=== PATIENT | male | born 1980 | race Caucasian/White ===

== ENCOUNTER 2023-01-12 23:27 | Emergency (ER) | payer BC ==
[2023-01-12] MEDS ORDERED: Ketorolac Tromethamine 60 MG/2 ML VIAL ONE (23:43)
== END 2023-01-13 | disposition home or self-care (01) ==
LOC: BURERS 23:27
DX: M54.41 Lumbago with sciatica, right side (principal); I10 Essential (primary) hypertension
CPT/HCPCS: 96372; 99283; J1885